=== PATIENT | female | born 1955 | race Caucasian/White ===

== ENCOUNTER → 2016-04-06 | Outpatient (CLI) | payer BC ==
[~2016-04-06] MED LIST: REGADENOSON 0.4 MG/5 ML SYRINGE IV ONE
--- NOTE | 2016-04-06 11:34 | EST ---
DATE OF SERVICE: 04/06/2016 AGE: 60Y SEX: F HT: 65" WT: 160 lbs. Lexiscan Cardiolite Stress Test *Heart Rate Blood Pressure *Rest: 75 Rest: 143/106 * *Max. Achieved: 119 Maximum BP: 182/93 85% PMHR: 159 100% PMHR: 135 *METS: - INDICATIONS: - MEDICATIONS: Calcium, Osteo-Biflex, multivitamin, Motrin. Mrs. Patino is a 60-year-old female who was sent for cardiac evaluation because of palpitation and vague chest discomfort with exertion. Baseline EKG showed a sinus rhythm with normal LA interval and QRS duration. Blood pressure at rest is 143/106 with pulse rate of 75. A standard dose of Lexiscan was infused. EKGs taken during and after the infusion did not reveal any significant changes from the baseline. Occasional PVCs were noted. FINAL IMPRESSION: 1. Negative Lexiscan stress test. 2. Occasional premature ventricular contractions. 3. Patient did not experience any chest pain. 4. Report on the nuclear images to be given by the radiologist.
--- NOTE | 2016-04-06 13:38 | NM ---
EXAMINATION TYPE: NM stress Lexiscan cardiolite DATE OF EXAM: 04/06/2016 11:38 AM COMPARISON: NONE HISTORY: Palpitations TECHNIQUE: After the intravenous administration of 10.6 mCi Tc 99m Sestamibi - Cardiolite resting SP ECT images acquired 45 minutes post injection. The patient received 0.4mg Lexiscan, 27.4 mCi Tc 99m Sestamibi - Stress images obtained [address] injection FINDINGS: Uptake of radiopharmaceutical by the left ventricle is suboptimal. There are no fixed filling defects . There is no convincing inducible ischemic change. Ejection fraction is normal 70%. IMPRESSION: I do not see convincing evidence of inducible ischemic change at this time.
== END | disposition home or self-care (01) ==
LOC: RADNMMAIN 08:58
PROVIDERS: ATTEND Internal Medicine
DX: I49.3 Ventricular premature depolarization (principal)
CPT/HCPCS: 93017; 78452; A9500; J2785

== ENCOUNTER 2016-04-28 08:08 | Day surgery (SDC) | payer BC ==
[2016-04-23 15:00] VITALS: BMI 26.6
[~2016-04-28 08:08] MED LIST changes: +LACTATED RINGERS 1,000 ML IV SCH; +LIDOCAINE 1% 20 ML VIAL (10MG/ML) FOR IV START INTRADERMA PRN; -REGADENOSON 0.4 MG/5 ML SYRINGE IV ONE
[2016-04-28 08:41] VITALS: RESP 16; TEMP 97.8
[2016-04-28] MEDS ORDERED: LIDOCAINE 1% INJ 10MG/ML (20 ML MDV) ONE (08:49)
[2016-04-28] MEDS ORDERED: PROPOFOL 10 MG/ML 20 ML VIAL IV ONE (08:49)
--- NOTE | 2016-04-28 09:12 | P.PCN ---
Date of Procedure: 04/28/16 Procedure(s) Performed: BRIEF HISTORY: Patient is a 60-year-old pleasant white female, scheduled for an elective colonoscopy as a part of evaluation of prior history of colon polyps. Last colonoscopy was in 2010. PROCEDURE PERFORMED: Colonoscopy with biopsy. PREOPERATIVE DIAGNOSIS: History of colon polyps. IV sedation per Anesthesia. PROCEDURE: After informed consent was obtained, the patient, was brought into the endoscopy unit. IV conscious sedation was administered by Anesthesia under continuous monitoring. Initially the Olympus CF-160 flexible video colonoscope was then inserted in the rectum, gradually advanced into the cecum without any difficulty. Careful examination was performed as the scope was gradually being withdrawn. Ileocecal valve and the appendiceal orifice were visualized and appeared normal. Prep was excellent. Mucosa of the cecum, ascending colon, transverse colon, descending colon, sigmoid colon, and rectum appeared normal. In the distal rectum there was a 5 limited polyp that was removed by biopsy. Retroflexion was performed in the rectum and no lesions were seen. The patient tolerated the procedure well. IMPRESSION: 5 mm mid rectal polyp status post removal by biopsy. Scattered sigmoid diverticulosis. RECOMMENDATIONS: Findings of this examination were discussed with the patient as well as her family. She was advised to follow with the biopsy results. If the biopsy shows a tubular adenoma she can have a repeat colonoscopy in 5 years..
[2016-04-28 09:31] VITALS: BP 130/83; PULSE 72
== END 2016-04-28 10:00 | disposition home or self-care (01) ==
LOC: ORWHC2ENDO 08:08
PROVIDERS: ATTEND Internal Medicine Gastroenterology
DX: Z12.11 Encounter for screening for malignant neoplasm of colon (principal); D12.8 Benign neoplasm of rectum; K57.30 Diverticulosis of large intestine without perforation or abscess without bleeding; E07.9 Disorder of thyroid, unspecified; Z86.010 Personal history of colon polyps; Z88.0 Allergy status to penicillin; Z79.1 Long term (current) use of non-steroidal anti-inflammatories (NSAID); Z79.899 Other long term (current) drug therapy
CPT/HCPCS: 88305; 45380; J2001; J2704; 99153

== ENCOUNTER → 2016-09-07 | Outpatient (CLI) | payer BC ==
--- NOTE | 2016-09-07 11:11 | BD ---
EXAMINATION TYPE: MG DEXA axial skeleton. DATE OF EXAM: 09/07/2016 COMPARISON: NONE CLINICAL HISTORY: 61-year-old female known osteopenia Height: 63 Weight: 181.3 FRAX RISK QUESTIONS: Alcohol (3 or more units per day): no Family History (Parent hip fracture): no Glucocorticoids (More than 3mos): no (Ex: prednisone, prednisolone, methylprednisolone, dexamethasone, and hydrocortisone). History of Fracture in Adulthood: yes Secondary Osteoporosis: 1. Type 1 Diabetes: no 2. Hyperthyroidism: no 3. Menopause before 45: yes 4. Malnutrition: no 5. Chronic liver disease: no Rheumatoid Arthritis: no Current Tobacco Use: no RISK FACTORS HISTORY OF: Hip Fracture (Right/Left): no Spine Fracture: no History of Wrist Fracture: no Surgery to Spine/Hip(right/left)/Wrist (right/left): no Family History of Osteoporosis: no Active: yes Diet low in dairy products/other sources of calcium: no Postmenopausal woman: age 35 Lost more than 2 inches in height since high school: yes Frequent falls: no Poor Health: no Hyperparathyroidism: no Adrenal Insufficiency: no MEDICATIONS: Thyroid Medications: synthroid How Lon years EXAM MEASUREMENTS: Bone mineral densitometry was performed using the Second & Fourth System. Bone mineral density as measured about the Lumbar spine is: ----- L1-L4(G/cm2): 1.029 T Score Values are as follows: ----- L2: -1.8 ----- L3: -1.6 ----- L4: -0.7 ----- L1-L4: -1.3 Bone mineral density has: decreased -1.0 % since study of: 05.17.2013 Bone mineral density about the R hip (g/cm2): 0.752 Bone mineral density about the L hip (g/cm2): 0.752 T Score values are as follows: -----R Neck: -2.1 -----L Neck: -2.1 -----R Total: -1.5 -----L Total: -1.0 Bone mineral density has: decreased -0.4 % since study of: 05.17.2013 IMPRESSION: Osteopenia as indicated by T score values in the lumbar spine and both hips. There is slightly increased risk of fracture and the patient may be considered for treatment. Re-Screen 2-5 years. NOTE: T-SCORE=SD OF THE YOUNG ADULT MEAN.
--- NOTE | 2016-09-07 11:22 | MM ---
Reason for exam: screening (asymptomatic). Last mammogram was performed 1 year and 1 month ago. History: Patient is postmenopausal and is nulliparous. Family history of breast cancer in paternal aunt at age 60 and breast cancer in maternal aunt at age 65. Benign cyst aspiration of the left breast, January 24, 2003. Benign excisional biopsy of the right breast. Took estrogen for 13 years beginning at age 35. Physical Findings: A clinical breast exam by your physician is recommended on an annual basis and results should be correlated with mammographic findings. MG Screening Mammo w CAD Bilateral CC and MLO view(s) were taken. Prior study comparison: August 06, 2015, bilateral MG 3d diag mammo w/cad VIKAS. January 28, 2015, left breast MG 3d diag mammo w/cad LT. The breast tissue is heterogeneously dense. This may lower the sensitivity of mammography. No significant changes when compared with prior studies. ASSESSMENT: Benign, BI-RAD 2 RECOMMENDATION: Routine screening mammogram of both breasts in 1 year.
== END | disposition home or self-care (01) ==
LOC: RADMAMWWP 08:10
PROVIDERS: ATTEND Obstetrics & Gynecology
DX: Z12.31 Encounter for screening mammogram for malignant neoplasm of breast (principal); M85.80 Other specified disorders of bone density and structure, unspecified site; Z80.3 Family history of malignant neoplasm of breast
CPT/HCPCS: 77080; G0202

== ENCOUNTER 2017-04-21 14:59 | Observation (INO) | payer BC ==
[2017-04-21] MEDS ORDERED: ASPIRIN 81 MG PO STA (15:15)
[2017-04-21] MEDS ORDERED: NITROGLYCERIN OINT 1 INCH/GM PACKET TOPICAL STA (15:15)
--- NOTE | 2017-04-21 15:17 | ED ---
General Adult HPI - General Chief complaint: Chest Pain Stated complaint: Chest Pain and Left shoulder Time Seen by Provider: 04/21/17 15:00 Source: patient, RN notes reviewed Mode of arrival: wheelchair Limitations: no limitations - History of Present Illness Initial comments: This is a 61-year-old female comes into the emergency department stating she is just gotten over the flu and she went back to work for the first day today and she was experiencing some chest pain since this morning. Patient states last couple of days she was experiencing some left upper back pain. Patient states today with the chest pain she was also noticing she was somewhat short of breath and lightheaded. Patient denies any diaphoresis. Patient denies any radiation of the chest pain. Patient denies any nausea. Patient states she is no longer coughing and no longer having fever chills. Patient denies any abdominal pain patient denies nausea vomiting diarrhea. Patient denies headache patient denies numbness weakness. Patient denies any dizziness lightheadedness or near syncopal episode. - Related Data Home Medications Medication Instructions Recorded Confirmed Calcium Citrate/Vitamin D3 1 tab PO BID 08/30/13 04/21/17 [Calcium Citrate - Vit D3 Tab] Multivit with Calcium,Iron,Min 1 tab PO DAILY 08/30/13 04/21/17 [Women's Daily Multivitamin] Ibuprofen [Motrin] 200 mg PO Q6HR PRN 12/10/15 04/21/17 Glucosamine/Chondr Andrews A Sod [Osteo 1 tab PO BID 04/23/16 04/21/17 Bi-Flex Caplet] Aspirin 325 mg PO ONCE PRN 04/21/17 04/21/17 Levothyroxine Sodium [Synthroid] 75 mcg PO DAILY 04/21/17 04/21/17 Allergies Allergy/AdvReac Type Severity Reaction Status Date / Time Penicillins Allergy Severe Rash/Hives Verified 04/21/17 15:17 Review of Systems ROS Statement: Those systems with pertinent positive or pertinent negative responses have been documented in the HPI. ROS Other: All systems not noted in ROS Statement are negative. Past Medical History Past Medical History: GERD/Reflux, Thyroid Disorder, Vascular Disorder Additional Past Medical History / Comment(s): hx migraines, varicose veins, venous ulcers, History of Any Multi-Drug Resistant Organisms: None Reported Past Surgical History: Appendectomy, Hysterectomy, Orthopedic Surgery Additional Past Surgical History / Comment(s): ORIF RIGHT FOOT WITH PLATE AND SCREWS, Past Anesthesia/Blood Transfusion Reactions: Postoperative Nausea & Vomiting ( PONV) Past Psychological History: No Psychological Hx Reported Smoking Status: Never smoker Past Alcohol Use History: None Reported Past Drug Use History: None Reported - Past Family History Sister(s) Family Medical History: Cancer Father Family Medical History: Musculoskeletal Disorder, Neurologic Disorder Additional Family Medical History / Comment(s): paternal and maternal aunts- breast cancer Mother Family Medical History: COPD, Dementia, Rheumatoid Arthritis (RA) General Exam - General Exam Comments Initial Comments: GENERAL: Patient is well-developed and well-nourished. Patient is nontoxic and well- hydrated and is in mild distress. ENT: Neck is soft and supple. No significant lymphadenopathy is noted. Oropharynx is clear. Moist mucous membranes. EYES: The sclera were anicteric and conjunctiva were pink and moist. Extraocular movements were intact and pupils were equal round and reactive to light. Eyelids were unremarkable. PULMONARY: Unlabored respirations. Good breath sounds bilaterally. No audible rales rhonchi or wheezing was noted. CARDIOVASCULAR: There is a regular rate and rhythm without any murmurs gallops or rubs. ABDOMEN: Soft and nontender with normal bowel sounds. No palpable organomegaly was noted. There is no palpable pulsatile mass. SKIN: Skin is clear with no lesions or rashes and otherwise unremarkable. NEUROLOGIC: Patient is alert and oriented x3. Cranial nerves II through XII are grossly intact. Motor and sensory are also intact. Normal speech, volume and content. Symmetrical smile. MUSCULOSKELETAL: Normal extremities with adequate strength and full range of motion. No lower extremity swelling or edema. No calf tenderness. LYMPHATICS: No significant lymphadenopathy is noted PSYCHIATRIC: Normal psychiatric evaluation. Normal interpersonal interactions appears functionally intact in deals appropriately with others. No signs of depression. No signs of anxiety. Limitations: no limitations Course Vital Signs 04/21/17 04/21/17 04/21/17 15:02 15:32 16:23 Temperature 98.4 F Pulse Rate 90 68 89 Respiratory 20 18 18 Rate Blood Pressure 180/98 170/89 117/72 O2 Sat by Pulse 99 96 96 Oximetry Medical Decision Making - Medical Decision Making EKG shows normal sinus rhythm at 95 bpm KS interval is 174 QRS is 116 QT interval 394 QTC is 495. Patient's EKG shows no ST segment elevation or depression or T wave abnormalities are noted. Chest x-ray showed no acute abnormality. Patient took aspirin and Nitropaste patient's chest pain completely resolved. I started the patient on heparin because of the unstable angina. I spoke with Dr. Marroquin he agreed to admit the patient admitted the patient I wrote admitting orders. I consult cardiology. - Lab Data Result diagrams: 04/21/17 15:25 04/21/17 15:25 Lab Results 04/21/17 04/21/17 04/21/17 Range/Units 15:25 15:25 15:25 WBC 5.5 (3.8-10.6) k/uL RBC 4.68 (3.80-5.40) m/uL Hgb 14.0 (11.4-16.0) gm/dL Hct 41.0 (34.0-46.0) % MCV 87.6 (80.0-100.0) fL MCH 29.9 (25.0-35.0) pg MCHC 34.1 (31.0-37.0) g/dL RDW 13.0 (11.5-15.5) % Plt Count 268 (150-450) k/uL Neutrophils % 58 % Lymphocytes % 31 % Monocytes % 5 % Eosinophils % 2 % Basophils % 0 % Neutrophils # 3.2 (1.3-7.7) k/uL Lymphocytes # 1.7 (1.0-4.8) k/uL Monocytes # 0.3 (0-1.0) k/uL Eosinophils # 0.1 (0-0.7) k/uL Basophils # 0.0 (0-0.2) k/uL PT (9.0-12.0) sec INR (<1.2) APTT (22.0-30.0) sec Sodium 142 (137-145) mmol/L Potassium 3.5 (3.5-5.1) mmol/L Chloride 106 (98-107) mmol/L Carbon Dioxide 24 (22-30) mmol/L Anion Gap 12 mmol/L BUN 13 (7-17) mg/dL Creatinine 0.70 (0.52-1.04) mg/dL Est GFR (MDRD) Af Amer >60 (>60 ml/min/1.73 sqM) Est GFR (MDRD) Non-Af >60 (>60 ml/min/1.73 sqM) Glucose 108 H (74-99) mg/dL Calcium 9.8 (8.4-10.2) mg/dL Magnesium 1.9 (1.6-2.3) mg/dL Total Bilirubin 0.3 (0.2-1.3) mg/dL AST 24 (14-36) U/L ALT 31 (9-52) U/L Alkaline Phosphatase 78 (38-126) U/L Total Creatine Kinase 82 (30-135) U/L CK-MB (CK-2) 1.5 (0.0-2.4) ng/mL CK-MB (CK-2) Rel Index 1.8 Troponin I <0.012 (0.000-0.034) ng/mL Total Protein 6.7 (6.3-8.2) g/dL Albumin 4.1 (3.5-5.0) g/dL 04/21/17 Range/Units 15:25 WBC (3.8-10.6) k/uL RBC (3.80-5.40) m/uL Hgb (11.4-16.0) gm/dL Hct (34.0-46.0) % MCV (80.0-100.0) fL MCH (25.0-35.0) pg MCHC (31.0-37.0) g/dL RDW (11.5-15.5) % Plt Count (150-450) k/uL Neutrophils % % Lymphocytes % % Monocytes % % Eosinophils % % Basophils % % Neutrophils # (1.3-7.7) k/uL Lymphocytes # (1.0-4.8) k/uL Monocytes # (0-1.0) k/uL Eosinophils # (0-0.7) k/uL Basophils # (0-0.2) k/uL PT 10.1 (9.0-12.0) sec INR 1.0 (<1.2) APTT 22.7 (22.0-30.0) sec Sodium (137-145) mmol/L Potassium (3.5-5.1) mmol/L Chloride (98-107) mmol/L Carbon Dioxide (22-30) mmol/L Anion Gap mmol/L BUN (7-17) mg/dL Creatinine (0.52-1.04) mg/dL Est GFR (MDRD) Af Amer (>60 ml/min/1.73 sqM) Est GFR (MDRD) Non-Af (>60 ml/min/1.73 sqM) Glucose (74-99) mg/dL Calcium (8.4-10.2) mg/dL Magnesium (1.6-2.3) mg/dL Total Bilirubin (0.2-1.3) mg/dL AST (14-36) U/L ALT (9-52) U/L Alkaline Phosphatase (38-126) U/L Total Creatine Kinase (30-135) U/L CK-MB (CK-2) (0.0-2.4) ng/mL CK-MB (CK-2) Rel Index Troponin I (0.000-0.034) ng/mL Total Protein (6.3-8.2) g/dL Albumin (3.5-5.0) g/dL Critical Care Time Critical Care Time: Yes Total Critical Care Time: 35 Disposition Clinical Impression: Unstable angina pectoris Disposition: ADMITTED IP TO THIS HOSP Referrals: Juan Patrick MD [Primary Care Provider] - 1-2 days
[2017-04-21 15:46] LABS: Basophils % (A) 0 %; Eosinophils # (A) 0.1 k/uL (0-0.7); Eosinophils % (A) 2 %; Lymphocytes # (A) 1.7 k/uL (1.0-4.8); Lymphocytes % (A) 31 %; MCH 29.9 pg (25.0-35.0); MCHC 34.1 g/dL (31.0-37.0); MCV 87.6 fL (80.0-100.0); Mean Platelet Volume 7.6; Monocytes # (A) 0.3 k/uL (0-1.0); Monocytes % (A) 5 %; Neutrophils # (A) 3.2 k/uL (1.3-7.7); Neutrophils % (A) 58 %; Platelet Count 268 k/uL (150-450); RBC 4.68 m/uL (3.80-5.40); WBC 5.5 k/uL (3.8-10.6)
[2017-04-21 15:53] LABS: ALT 31 U/L (9-52); AST 24 U/L (14-36); Albumin 4.1 g/dL (3.5-5.0); Alkaline Phosphatase 78 U/L (38-126); Anion Gap 12 mmol/L; Blood Urea Nitrogen 13 mg/dL (7-17); Calcium 9.8 mg/dL (8.4-10.2); Carbon Dioxide 24 mmol/L (22-30); Chloride 106 mmol/L (98-107); Glucose 108 mg/dL (74-99); Magnesium 1.9 mg/dL (1.6-2.3); Potassium 3.5 mmol/L (3.5-5.1); Sodium 142 mmol/L (137-145); Total Bilirubin 0.3 mg/dL (0.2-1.3); Total Protein 6.7 g/dL (6.3-8.2)
[2017-04-21 15:54] LABS: Partial Thromboplastin Time 22.7 sec (22.0-30.0); Prothrombin Time 10.1 sec (9.0-12.0)
--- NOTE | 2017-04-21 15:59 | XR ---
EXAMINATION TYPE: XR chest 2V DATE OF EXAM: 04/21/2017 COMPARISON: NONE TECHNIQUE: PA and lateral views submitted. HISTORY: Left chest pain FINDINGS: The lungs are clear and there is no pneumothorax, pleural effusion, or focal pneumonia. Opercular d egenerative change of the spine. IMPRESSION: 1. No acute process.
[2017-04-21 16:03] LABS: Creatine Kinase 82 U/L (30-135)
[2017-04-21 16:15] LABS: Creatine Kinase MB 1.5 ng/mL (0.0-2.4); Troponin I <0.012 ng/mL (0.000-0.034)
[2017-04-21] MEDS ORDERED: HEPARIN SODIUM,PORCINE 5,000 UNIT/ML 1 ML VIAL IV ONE (16:56)
[2017-04-21] MEDS ORDERED: HEPARIN SOD,PORK IN 0.45% NACL 25,000 UNIT in 0.45% NACL 1 500ML.BAG IV SCH (17:00)
[2017-04-21] MEDS ORDERED: ASPIRIN 325 MG TAB PO PRN (23:10)
[2017-04-21] MEDS ORDERED: ZOLPIDEM 5 MG TAB PO PRN (23:11)
[2017-04-21] MEDS ORDERED: ACETAMINOPHEN TAB 325 MG TAB PO PRN (23:12)
[2017-04-21] MEDS ORDERED: CALCIUM CARBONATE 500 MG CHEWABLE PO PRN (23:13)
[2017-04-21] MEDS ORDERED: PANTOPRAZOLE 40 MG TABLET PO STA (23:13)
[2017-04-21 23:25] LABS: Creatine Kinase 61 U/L (30-135)
[2017-04-21 23:38] LABS: Troponin I <0.012 ng/mL (0.000-0.034)
[2017-04-22 05:33] LABS: Creatine Kinase 54 U/L (30-135)
[2017-04-22 05:44] LABS: Creatine Kinase MB 0.8 ng/mL (0.0-2.4); Troponin I <0.012 ng/mL (0.000-0.034)
[2017-04-22] MEDS ORDERED: LEVOTHYROXINE 75 MCG TAB PO SCH (06:30)
[2017-04-22] MEDS ORDERED: PANTOPRAZOLE 40 MG TABLET PO SCH (07:30)
[2017-04-22 08:01] VITALS: RESP 16
[2017-04-22] MEDS ORDERED: MULTIVITAMINS, THERA 1 EACH TAB PO SCH (09:00)
[2017-04-22] MEDS ORDERED: CALCIUM CARB-VIT D 500MG-200UN 1 EACH TAB PO SCH (09:00)
--- NOTE | 2017-04-22 09:31 | CONS ---
CONSULTATION Mrs. Patino is a 61-year-old female who presented with symptoms of chest discomfort. She recently had a viral infection and yesterday went back to work then started to complain of some chest discomfort on and off, not related to physical activity. She had mild dyspnea and did not feel well, came into the emergency room and subsequently admitted. At the time my evaluation, she is pain free. The patient is usually active physically and has no significant exertional chest discomfort or dyspnea. She has underwent a myocardial perfusion imaging on the March that revealed no evidence of inducible ischemia and her left ventricular systolic function was normal. The patient has no history of PND, orthopnea, or peripheral edema. She has history of varicosities. No dizziness. She has rare palpitation. No syncope. Her current risk factors are negative for smoking. She is nondiabetic. No hyperlipidemia. Her medications include aspirin, vitamin D, glucosamine, ibuprofen, levothyroxine. REVIEW OF SYSTEMS: RESPIRATORY SYSTEM: She has no history of documented asthma, emphysema, bronchitis. She had a recent upper respiratory infection, was told that she has influenza. GI SYSTEM: No recent GI bleeding. No peptic ulcer disease. SYSTEM: No dysuria or hematuria. NERVOUS SYSTEM: No history of stroke or seizure. PHYSICAL EXAMINATION: A 61-year-old female, alert, oriented, in no apparent distress. Blood pressure 131/70 with the heart rate in the 80s. HEAD: Normocephalic. EYES: Sclerae anicteric. NECK: Good upstroke. No bruit. No jugular venous distention. LUNGS: Clear to auscultation. HEART: Regular rate and rhythm. S1, S2. No S3. No rub. ABDOMEN: Soft, nontender. Positive bowel sounds. No organomegaly. EXTREMITIES: No edema. Intact distal pulses. LAB DATA: Lab data revealed troponin less than 0.012 for 3 samples. BUN and creatinine 13 and 0.7. Potassium 3.5. Hemoglobin 14. EKG revealed a sinus mechanism with a RSR prime and no acute changes. Chest x-ray shows no infiltrate. IMPRESSION: 1. Chest discomfort, atypical for ischemic heart disease with no evidence of acute coronary syndrome. The patient had a myocardial perfusion imaging done a year ago that was unremarkable. 2. Recent upper respiratory infection. RECOMMENDATION: From the cardiac standpoint, I will stop the IV nitroglycerin, increase her level of activity. I will obtain echocardiogram with Doppler. If she has no further symptoms with ambulation, she should be able to be discharged home and followed as an outpatient. Thank you for this consult. Will follow with you. VANNESSA / ARIANE: [id number] /
[2017-04-22 12:04] VITALS: BP 144/94; PULSE 87; TEMP 98.9
--- NOTE | 2017-04-22 12:15 | P.HPIM ---
History of Present Illness H&P Date: 04/22/17 Chief Complaint: Chest pain This is a 61-year-old female with a known past medical history of hypothyroidism , migraines acid reflux. Patient reports she recently had flu. However describe symptoms of vomiting and diarrhea for 4 days. That is now resolved. Yesterday was her first day to return to work. And while she was at work she started having left-sided chest pain that went into the left shoulder and behind the shoulder and the back. Coworkers were concerned for her. Therefore patient did come into the emergency room for further evaluation and treatment. Chest x-rays negative. EKG showing normal sinus rhythm. Troponins were negative 3 sets. Patient recently had a stress test in March 2016 which was negative. Patient has knitted to the observation floor. Cardiology has been consulted. In they've ordered a echo. Depending on those results patient may be a be discharged later this afternoon. She is no longer having any chest pain. She denies any cough fever or chills or sweats. Denies any further episodes of nausea or vomiting. Denies any burning with urination. Review of Systems Please refer to HPI otherwise unremarkable Past Medical History Past Medical History: GERD/Reflux, Thyroid Disorder, Vascular Disorder Additional Past Medical History / Comment(s): hx migraines, varicose veins, venous ulcers, History of Any Multi-Drug Resistant Organisms: None Reported Past Surgical History: Appendectomy, Hysterectomy, Orthopedic Surgery Additional Past Surgical History / Comment(s): ORIF RIGHT FOOT WITH PLATE AND SCREWS, Past Anesthesia/Blood Transfusion Reactions: Postoperative Nausea & Vomiting ( PONV) Smoking Status: Never smoker - Past Family History Sister(s) Family Medical History: Cancer Additional Family Medical History / Comment(s): mom hx: emphysema, hypertension , dementia. dad hx:ms Father Family Medical History: Musculoskeletal Disorder, Neurologic Disorder Additional Family Medical History / Comment(s): paternal and maternal aunts- breast cancer Mother Family Medical History: COPD, Dementia, Rheumatoid Arthritis (RA) Medications and Allergies Home Medications Medication Instructions Recorded Confirmed Type Calcium Citrate/Vitamin D3 1 tab PO BID 08/30/13 04/21/17 History [Calcium Citrate - Vit D3 Tab] Multivit with Calcium,Iron,Min 1 tab PO DAILY 08/30/13 04/21/17 History [Women's Daily Multivitamin] Ibuprofen [Motrin] 200 mg PO Q6HR PRN 12/10/15 04/21/17 History Glucosamine/Chondr Andrews A Sod [Osteo 1 tab PO BID 04/23/16 04/21/17 History Bi-Flex Caplet] Aspirin 325 mg PO ONCE PRN 04/21/17 04/21/17 History Levothyroxine Sodium [Synthroid] 75 mcg PO DAILY 04/21/17 04/21/17 History Allergies Allergy/AdvReac Type Severity Reaction Status Date / Time Penicillins Allergy Severe Rash/Hives Verified 04/21/17 15:17 Physical Exam Vitals: Vital Signs Temp Pulse Pulse Resp BP BP Pulse Ox 04/22/17 12:00 98.9 F 87 16 144/94 98 04/22/17 07:59 98.6 F 82 16 131/78 96 04/22/17 04:00 60 18 04/22/17 03:28 98 F 86 18 143/77 95 04/22/17 00:00 68 18 04/21/17 22:21 81 18 100/59 100 04/21/17 20:00 78 18 04/21/17 19:18 99 F 86 18 104/67 95 04/21/17 17:55 97.9 F 90 18 140/84 98 04/21/17 17:32 97.4 F L 82 18 132/80 99 04/21/17 16:23 89 18 117/72 96 04/21/17 15:32 68 18 170/89 96 04/21/17 15:02 98.4 F 90 20 180/98 99 Intake and Output 04/21/17 04/22/17 04/22/17 22:59 06:59 14:59 Intake Total 1116 511.917 Balance 1116 511.917 Intake: IV 80 330 0.9 NS @ KVO 80 160 Heparin Sod,Pork in 0.45% 170 NaCl 25,000 unit In 0.45 % NaCl 1 500ml.bag @ 12 UNITS/KG/HR 18.5 mls/hr IV .Q24H TEX Rx#: [id number] Intake, IV Titration 76 181.917 Amount Heparin Sod,Pork in 0.45% 76 181.917 NaCl 25,000 unit In 0.45 % NaCl 1 500ml.bag @ 12 UNITS/KG/HR 18.5 mls/hr IV .Q24H TEX Rx#: [id number] Oral 960 Other: Voiding Method Toilet Toilet Toilet # Voids 2 2 Weight 79.8 kg Head normocephalic Neck supple Lungs clear to auscultation bilaterally no wheezing or crackles Heart regular rate and rhythm S1-S2, no rub or gallop Abdomen is soft nontender nondistended positive bowel sounds no hepatosplenomegaly Extremities no edema Neuro alert and orientated to 3 Results CBC & Chem 7: 04/21/17 15:25 04/21/17 15:25 Labs: Abnormal Lab Results - Last 24 Hours (Table) 04/21/17 04/21/17 Range/Units 15:25 22:42 APTT 39.5 H (22.0-30.0) sec Glucose 108 H (74-99) mg/dL Thrombosis Risk Factor Assmnt - Choose All That Apply Any of the Below Risk Factors Present?: Yes Each Factor Represents 1 point: Obesity (BMI >25) Other Risk Factors: Yes Each Risk Factor Represents 2 Points: Age 61-74 years Other congenital or acquired thrombophilia - If yes, enter type in comment: No Thrombosis Risk Factor Assessment Total Risk Factor Score: 3 Thrombosis Risk Factor Assessment Level: Moderate Risk Assessment and Plan Assessment: 1. Chest pain: HI ruled out. Troponins negative 3 sets. EKG normal sinus rhythm. Chest x-rays negative. Last stress test a year ago which was negative. Patient seen by cardiology they've ordered an echocardiogram. Awaiting those results with a possible discharge this afternoon 2. Recent gastroenteritis with vomiting and diarrhea. Resolved 3. Hypothyroidism 4. GERD Anticipating discharge later this afternoon. Time with Patient: Greater than 30 (Greater than 50% of the total time spent in counseling and coordination of care.I performed an examination of the patient and discussed their management with the physician Valve Steamer. I have reviewed the Physician Valve Steamer's notes and agree with the documented findings and plan of care)
--- NOTE | 2017-04-22 13:12 | ECHOF ---
Referral Reason: MEASUREMENTS -------- HEIGHT: 165.1 cm WEIGHT: 79.4 kg BP: RVIDd: 3.5 cm (< 3.3) IVSd: 1.2 cm (0.6 - 1.1) LVIDd: 4.1 cm (3.9 - 5.3) LVPWd: 0.8 cm (0.6 - 1.1) IVSs: 1.4 cm LVIDs: 3.0 cm LVPWs: 1.4 cm LA Diam: 3.1 cm (2.7 - 3.8) LAESV Index (A-L): 22.53 ml/m Ao Diam: 2.7 cm (2.0 - 3.7) AV Cusp: 2.0 cm (1.5 - 2.6) LA Diam: 3.9 cm (2.7 - 3.8) MV EXCURSION: 17.701 mm (> 18.000) MV EF SLOPE: 101 mm/s (70 - 150) EPSS: 0.6 cm MV E Conrad: 0.65 m/s MV DecT: 198 ms MV A Conrad: 0.72 m/s MV E/A Ratio: 0.91 AR PHT: 340 ms RAP: 5.00 mmHg RVSP: 17.57 mmHg FINDINGS -------- Sinus rhythm. This was a technically good study. The left ventricular size is normal. There is mild concentric left ventricular hypertrophy. Overa ll left ventricular systolic function is normal with, an EF between 55 - 60 %. The right ventricle is normal in size. Normal LA size by volume 22+/-6 ml/m2. The right atrial size is normal. The aortic valve is trileaflet and appears structurally normal. There is mild aortic regurgitation. The mitral valve is normal. Mild mitral regurgitation is present. Mild tricuspid regurgitation present. There is no evidence of pulmonary hypertension. The right v entricular systolic pressure, as measured by Doppler, is 17.57mmHg. Trace/mild (physiologic) pulmonic regurgitation. The aortic root size is normal. There is no pericardial effusion. CONCLUSIONS -------- 1. Sinus rhythm. 2. This was a technically good study. 3. The left ventricular size is normal. 4. There is mild concentric left ventricular hypertrophy. 5. Overall left ventricular systolic function is normal with, an EF between 55 - 60 %. 6. Normal LA size by volume 22+/-6 ml/m2. 7. There is mild aortic regurgitation. 8. Mild mitral regurgitation is present. 9. Mild tricuspid regurgitation present. 10. There is no evidence of pulmonary hypertension. 11. Trace/mild (physiologic) pulmonic regurgitation. 12. The aortic root size is normal. 13. There is no pericardial effusion. YARD TRUCK DRIVER: Latonya Chopra RDCS
--- NOTE | 2017-04-22 13:56 | P.DS ---
Providers Date of admission: 04/21/17 17:18 Expected date of discharge: 04/22/17 Attending physician: Ashkan Marroquin Consults: 04/21/17 17:31 Consult Physician Stat Consulting Provider: Claire No Consult Reason/Comments: Unstable Angina Do you want consulting provider notified?: Yes Primary care physician: Juan Camarena [facility] Course: Discharge diagnosis 1. Chest pain: OR ruled out. Troponins negative 3 sets. EKG normal sinus rhythm. Chest x-rays negative. Last stress test a year ago which was negative. Patient seen by cardiology they've ordered an echocardiogram. Awaiting those results with a possible discharge this afternoon 2. Recent gastroenteritis with vomiting and diarrhea. Resolved 3. Hypothyroidism 4. GERD Hospital course This is a 61-year-old female with a known past medical history of hypothyroidism , migraines acid reflux. Patient reports she recently had flu. However describe symptoms of vomiting and diarrhea for 4 days. That is now resolved. Yesterday was her first day to return to work. And while she was at work she started having left-sided chest pain that went into the left shoulder and behind the shoulder and the back. Coworkers were concerned for her. Therefore patient did come into the emergency room for further evaluation and treatment. Chest x-rays negative. EKG showing normal sinus rhythm. Troponins were negative 3 sets. Patient recently had a stress test in March 2016 which was negative. Patient has knitted to the observation floor. Cardiology has been consulted. In they've ordered a echo. Depending on those results patient may be a be discharged later this afternoon. She is no longer having any chest pain. She denies any cough fever or chills or sweats. Denies any further episodes of nausea or vomiting. Denies any burning with urination. Patient was seen evaluated by cardiology. OR ruled out. Echocardiogram shows an EF of 55-60%. Mild mitral regurgitation, mild tricuspid regurgitation and trace pulmonary regurgitation. Cardiology is cleared patient for discharge. She'll follow-up with cardiology in the outpatient setting. Her chest pain is resolved. Tolerating diet. Patient did have some mildly elevated blood pressures on admission. However blood pressures have now normalized. We'll continue to monitor BP in the outpatient setting. Patient medically stable for discharge I performed an examination of the patient and discussed their management with the physician Melting Operator. I have reviewed the Physician Melting Operator's notes and agree with the documented findings and plan of care Patient Condition at Discharge: Stable Plan - Discharge Summary Discharge Rx Participant: No New Discharge Prescriptions: Continue Multivit with Calcium,Iron,Min [Women's Daily Multivitamin] 1 tab PO DAILY Calcium Citrate/Vitamin D3 [Calcium Citrate - Vit D3 Tab] 1 tab PO BID Ibuprofen [Motrin] 200 mg PO Q6HR PRN PRN Reason: Pain Glucosamine/Chondr Andrews A Sod [Osteo Bi-Flex Caplet] 1 tab PO BID Levothyroxine Sodium [Synthroid] 75 mcg PO DAILY Aspirin 325 mg PO ONCE PRN PRN Reason: Chest Pain Discharge Medication List Calcium Citrate/Vitamin D3 [Calcium Citrate - Vit D3 Tab] 1 tab PO BID 08/30/13 [History] Multivit with Calcium,Iron,Min [Women's Daily Multivitamin] 1 tab PO DAILY 08/30 [History] Ibuprofen [Motrin] 200 mg PO Q6HR PRN 12/10/15 [History] Glucosamine/Chondr Andrews A Sod [Osteo Bi-Flex Caplet] 1 tab PO BID 04/23/16 [ History] Aspirin 325 mg PO ONCE PRN 04/21/17 [History] Levothyroxine Sodium [Synthroid] 75 mcg PO DAILY 04/21/17 [History] Follow up Appointment(s)/Referral(s): Alison Hobbs MD [STAFF PHYSICIAN] - 3 Weeks (Office will call patient with appointment date and time) Juan Patrick MD [Primary Care Provider] - 1 Week Activity/Diet/Wound Care/Special Instructions: Diet: regular Activity: as tolerated Discharge Disposition: HOME SELF-CARE
[2017-04-22 15:40] VITALS: BMI 29.2
== END 2017-04-22 15:30 | disposition home or self-care (01) ==
LOC: EC 14:59 → 3OBS 17:18
PROVIDERS: ADMIT Internal Medicine; ATTEND Internal Medicine
DX: R07.89 Other chest pain (principal); M25.512 Pain in left shoulder; M54.6 Pain in thoracic spine; R42 Dizziness and giddiness; R06.00 Dyspnea, unspecified; R06.02 Shortness of breath; K52.9 Noninfective gastroenteritis and colitis, unspecified; E03.9 Hypothyroidism, unspecified; K21.9 Gastro-esophageal reflux disease without esophagitis; G43.909 Migraine, unspecified, not intractable, without status migrainosus; I08.1 Rheumatic disorders of both mitral and tricuspid valves; R03.0 Elevated blood-pressure reading, without diagnosis of hypertension; E66.9 Obesity, unspecified; Z68.29 Body mass index [BMI] 29.0-29.9, adult; I83.90 Asymptomatic varicose veins of unspecified lower extremity; Z88.0 Allergy status to penicillin; Z79.899 Other long term (current) drug therapy; Z82.5 Family history of asthma and other chronic lower respiratory diseases; Z80.3 Family history of malignant neoplasm of breast; Z82.0 Family history of epilepsy and other diseases of the nervous system; Z82.61 Family history of arthritis; Z82.49 Family history of ischemic heart disease and other diseases of the circulatory system
CPT/HCPCS: 99291; 96376 ×2; 96365 ×2; 96366 ×2; 36415; 93005; 93306; 80053; 82550 ×2; 82553 ×2; 83735; 84484 ×2; 85025; 85610; 85730; 71046; G0378 ×2; J1644 ×2

== ENCOUNTER → 2017-11-30 | Outpatient (CLI) | payer BC ==
--- NOTE | 2017-12-01 13:12 | MM ---
Reason for exam: screening (asymptomatic). Last mammogram was performed 1 year and 3 months ago. History: Patient is postmenopausal and is nulliparous. Family history of breast cancer in paternal aunt at age 60 and breast cancer in maternal aunt at age 65. Benign cyst aspiration of the left breast, January 24, 2003. Benign excisional biopsy of the right breast. Took estrogen for 13 years beginning at age 35. Physical Findings: A clinical breast exam by your physician is recommended on an annual basis and results should be correlated with mammographic findings. MG Screening Mammo w CAD Bilateral CC and MLO view(s) were taken. Prior study comparison: September 07, 2016, bilateral MG screening mammo w CAD. August 06, 2015, bilateral MG 3d diag mammo w/cad VIKAS. The breast tissue is heterogeneously dense. This may lower the sensitivity of mammography. No significant changes when compared with prior studies. ASSESSMENT: Benign, BI-RAD 2 RECOMMENDATION: Routine screening mammogram of both breasts in 1 year.
== END | disposition home or self-care (01) ==
LOC: RADMAMWWP 07:16
PROVIDERS: ATTEND Obstetrics & Gynecology
DX: Z12.31 Encounter for screening mammogram for malignant neoplasm of breast (principal)
CPT/HCPCS: 77067

== ENCOUNTER → 2018-12-25 | Outpatient (CLI) | payer BC ==
--- NOTE | 2018-12-25 10:32 | BD ---
EXAMINATION TYPE: Axial Bone Density DATE OF EXAM: 12/25/2018 COMPARISON: 2017 CLINICAL HISTORY: disorder of bone Height: 5'2 Weight: 180 FRAX RISK QUESTIONS: History of Fracture in Adulthood: y Secondary Osteoporosis: 3. Menopause before 45: y RISK FACTORS HISTORY OF: Postmenopausal woman: y MEDICATIONS: Thyroid Medications: Which medication: Synthroid How Lon years Additional Medications: Additional History: EXAM MEASUREMENTS: Bone mineral densitometry was performed using the [employer] System. Bone mineral density as measured about the Lumbar spine is: ----- L1-L4(G/cm2): 1.109 T Score Values are as follows: ----- L2: -1.2 ----- L3: -0.6 ----- L4: -0.4 ----- L1-L4: -0.6 Bone mineral density has: Increased 6.8 %since study of: 09/07/2016 Bone mineral density about the R hip (g/cm2): 0.780 Bone mineral density about the L hip (g/cm2): 0.777 T Score values are as follows: -----R Neck: -1.9 -----L Neck: -1.9 -----R Total: -1.5 -----L Total: -0.7 Bone mineral density has: Increased 1.5%since study of: 09/07/2016 IMPRESSION: Osteopenia (T Score between -2.5 and -1). There is slightly increased risk of fracture and the patient may be considered for treatment. Re-Screen 2-5 years. NOTE: T-SCORE=SD OF THE YOUNG ADULT MEAN.
--- NOTE | 2018-12-25 13:24 | MM ---
Reason for exam: screening (asymptomatic). Last mammogram was performed 1 year and 1 month ago. History: Patient is postmenopausal and is nulliparous. Family history of breast cancer in paternal aunt at age 60 and breast cancer in maternal aunt at age 65. Benign cyst aspiration of the left breast, January 24, 2003. Benign excisional biopsy of the right breast. Took estrogen for 13 years beginning at age 35. Physical Findings: A clinical breast exam by your physician is recommended on an annual basis and results should be correlated with mammographic findings. MG Screening Mammo w CAD Bilateral CC and MLO view(s) were taken. XCCM view(s) were taken of the right breast. Prior study comparison: November 30, 2017, bilateral MG screening mammo w CAD. September 07, 2016, bilateral MG screening mammo w CAD. The breast tissue is heterogeneously dense. This may lower the sensitivity of mammography. Benign appearing calcifications in the right breast. There are two upper outer quadrant masses and three left masses as well as posterior depth central asymmetry. Spot images first recommended to see which masses persist. Ultrasound if persistent. ASSESSMENT: Incomplete: need additional imaging evaluation, BI-RAD 0 RECOMMENDATION: Special view mammogram of the left breast. If lesion persists on supplemental views, image directed ultrasound is recommended. [facility] will attempt to contact patient to return for supplemental views and ultrasound if indicated.
== END ==
LOC: RADMAMWWP 08:26
PROVIDERS: ATTEND Obstetrics & Gynecology
DX: Z12.31 Encounter for screening mammogram for malignant neoplasm of breast (principal); M85.80 Other specified disorders of bone density and structure, unspecified site
CPT/HCPCS: 77067; 77080

== ENCOUNTER → 2019-01-02 | Outpatient (CLI) | payer BC ==
--- NOTE | 2019-01-03 09:30 | MM ---
Reason for exam: additional evaluation requested from abnormal screening. Last mammogram was performed less than 1 month ago. History: Patient is postmenopausal and is nulliparous. Family history of breast cancer in paternal aunt at age 60 and breast cancer in maternal aunt at age 65. Benign cyst aspiration of the left breast, January 24, 2003. Benign excisional biopsy of the right breast. Took estrogen for 13 years beginning at age 35. Physical Findings: Nurse did not find any significant physical abnormalities on exam. MG Work Up Mamm w CAD BILAT Bilateral spot compression CC, spot compression MLO, and LM view(s) were taken. Prior study comparison: December 25, 2018, bilateral MG screening mammo w CAD. November 30, 2017, bilateral MG screening mammo w CAD. The breast tissue is heterogeneously dense. This may lower the sensitivity of mammography. There are multiple bilateral circumscribed masses, most commonly cysts, however ultrasound will be performed on the right and in the left upper outer quadrant in the areas of change from the prior 3D mammogram of 2016. These results were verbally communicated with the patient and result sheet given to the patient on 01/02/19. ASSESSMENT: Incomplete: need additional imaging evaluation, BI-RAD 0 RECOMMENDATION: Ultrasound of both breasts. Left upper outer quadrant, right whole breast.
--- NOTE | 2019-01-03 09:57 | USB ---
Reason for exam: additional evaluation requested from abnormal screening. History: Patient is postmenopausal and is nulliparous. Family history of breast cancer in paternal aunt at age 60 and breast cancer in maternal aunt at age 65. Benign cyst aspiration of the left breast, January 24, 2003. Benign excisional biopsy of the right breast. Took estrogen for 13 years beginning at age 35. US Breast Workup Limited VIKAS Right complete breast ultrasound includes all four quadrants, the retroareolar region and axilla. Finding demonstrates a 0.3 x 0.3 x 0.3cm oval, complicated cystic lesion at 2 o'clock, a 0.2 x 0.2 x 0.2cm oval lesion too small to characterize at 7 o'clock, duct ectasia at 10 o'clock, a 0.8 x 1.0 x 0.6cm oval, cystic lesion at 11 o'clock, multiple calcifications at 9 o'clock posterior nipple and a 2.7 x 1.1 x 1.0cm oval node at the axilla. Left limited breast ultrasound including focal area of concern, retroareolar and axilla demonstrates a 0.8 x 0.9 x 0.5cm cystic cluster at 12 o'clock, a 0.4 x 0.4 x 0.3cm complicated, cystic lesion at 2 o'clock, a 2.2 x 2.1 x 0.9cm axilla node, a 0.6 x 1.1 x 0.5cm cystic lesion possible intracystic component at 4 o'clock for which a 6 month follow up is recommended and a 0.6 x 0.6 x 0.5cm second complex cyst versus cyst cluster at 6 o'clock stable from 2016 and benign. Scanned whole right breast. Scanned left beast 12-9 o'clock. These results were verbally communicated with the patient and result sheet given to the patient on 01/02/19. ASSESSMENT: Probably benign, BI-RAD 3 RECOMMENDATION: Follow-up diagnostic mammogram of the right breast in 6 months. Ultrasound of the left breast in 6 months. (4 o'clock)
== END | disposition home or self-care (01) ==
LOC: RADMAMWWP 14:08
PROVIDERS: ATTEND Obstetrics & Gynecology
DX: R92.8 Other abnormal and inconclusive findings on diagnostic imaging of breast (principal)
CPT/HCPCS: 77066

== ENCOUNTER → 2019-12-25 | Outpatient (CLI) | payer BC ==
--- NOTE | 2019-12-25 14:42 | MM ---
Reason for exam: additional evaluation requested from prior study. Last mammogram was performed 1 year ago. History: Patient is postmenopausal and is nulliparous. Family history of breast cancer in paternal aunt at age 60 and breast cancer in maternal aunt at age 65. Benign cyst aspiration of the left breast, January 24, 2003. Benign excisional biopsy of the right breast. Took estrogen for 13 years beginning at age 35. Physical Findings: Nurse did not find any significant physical abnormalities on exam. MG 3D Diag Mammo W/Cad VIKAS Bilateral CC and MLO view(s) were taken. Prior study comparison: January 02, 2019, bilateral MG work up mamm w CAD BILAT. December 25, 2018, bilateral MG screening mammo w CAD. The breast tissue is heterogeneously dense. This may lower the sensitivity of mammography. There is chronic nodularity bilaterally. These results were verbally communicated with the patient and result sheet given to the patient on 12/25/19. ASSESSMENT: Incomplete: need additional imaging evaluation, BI-RAD 0 RECOMMENDATION: Ultrasound of the left breast.
--- NOTE | 2019-12-25 14:43 | USB ---
Reason for exam: additional evaluation requested from abnormal screening. History: Patient is postmenopausal and is nulliparous. Family history of breast cancer in paternal aunt at age 60 and breast cancer in maternal aunt at age 65. Benign cyst aspiration of the left breast, January 24, 2003. Benign excisional biopsy of the right breast. Took estrogen for 13 years beginning at age 35. US Breast Limited LT Left limited breast ultrasound including focal area of concern, retroareolar and axilla demonstrates a 0.8 x 0.7 x 0.4cm cystic lesion at 12 o'clock and a 0.5 x 0.4 x 0.4cm cystic lesion at 3 o'clock. These results were verbally communicated with the patient and result sheet given to the patient on 12/25/19. ASSESSMENT: Benign, BI-RAD 2 RECOMMENDATION: Routine screening mammogram of both breasts in 1 year.
== END | disposition home or self-care (01) ==
LOC: RADMAMWWP 13:35
PROVIDERS: ATTEND Obstetrics & Gynecology
DX: R92.8 Other abnormal and inconclusive findings on diagnostic imaging of breast (principal); Z87.898 Personal history of other specified conditions
CPT/HCPCS: 77062; 77066

== ENCOUNTER → 2020-10-21 | Outpatient (CLI) | payer BC ==
--- NOTE | 2020-10-21 15:19 | US ---
LOWER EXTREMITY VENOUS INSUFFICIENCY CLINICAL HISTORY: I87.311. SIDE PERFORMED: Bilateral 1) Color flow is present and patency is documented in the following vessels. No DVT or SVT is noted . Common Femoral Vein Deep Femoral Vein Femoral Vein Popliteal Vein Proximal Calf Veins Greater Saph Vein Upper Small Saph Vein 2) There is venous reflux noted at the following venous levels: Right GSV, right SSV, Left GSV IMPRESSION: 1. Venous reflux as discussed above.
--- NOTE | 2020-10-22 12:15 | P.ARTDOP ---
Arterial Doppler LOWER EXTREMITY ARTERIAL DOPPLER: DATE OF SERVICE: 10/21/2020 Reason for study: Right ankle ulcer. Doppler waveforms: Multiphasic bilaterally throughout. Pulse volume recording: []. Pressure gradients: None. Ankle-brachial indices: Greater than 1 bilaterally. Toe brachial indices: [] on the right, [] on the left Impression: Normal study.
== END | disposition home or self-care (01) ==
LOC: RADUSWWP 13:34
PROVIDERS: ATTEND Family Medicine
DX: I87.2 Venous insufficiency (chronic) (peripheral) (principal)
CPT/HCPCS: 93922; 93970

== ENCOUNTER → 2021-05-06 | Outpatient (CLI) | payer MEDICARE ==
--- NOTE | 2021-05-06 17:38 | BD ---
EXAMINATION TYPE: Axial Bone Density DATE OF EXAM: 05/06/2021 COMPARISON: 12/25/2018 CLINICAL HISTORY: Height: 61 IN Weight: 177 FRAX RISK QUESTIONS: Secondary Osteoporosis: 3. Menopause before 45: TOTAL HYST AGE 35 RISK FACTORS HISTORY OF: Active: YES Postmenopausal woman: TOTAL HYST AGE 35 Take estrogen and/or progesterone medications: NOT NOW How long: TOOK FOR 7 YEARS MEDICATIONS: Thyroid Medications: YES Which medication: Levothyroxine How Lon+ YEARS Additional Medications: CALCIUM, VIT D, LEVOTHYROXINE, OSTEO-BIOFLEX, BLOOD PRESSURE MEDS, MULTI VIT EXAM MEASUREMENTS: Bone mineral densitometry was performed using the [employer] System. Bone mineral density as measured about the Lumbar spine is: ----- L1-L4(G/cm2): 1.080 T Score Values are as follows: ----- L2: -1.6 ----- L3: -1.3 ----- L4: -0.2 ----- L1-L4: -0.8 Bone mineral density has: Decreased -2.9% since study of: 12/25/2018 Bone mineral density about the R hip (g/cm2): 0.760 Bone mineral density about the L hip (g/cm2): 0.742 T Score values are as follows: -----R Neck: -2.0 -----L Neck: -2.1 -----R Total: -1.7 -----L Total: -1.1 Bone mineral density has: Decreased -4.4% since study of: 12/25/2018 IMPRESSION: Osteopenia (T Score between -2.5 and -1). There is slightly increased risk of fracture and the patient may be considered for treatment. Re-Screen 2-5 years. NOTE: T-SCORE=SD OF THE YOUNG ADULT MEAN.
--- NOTE | 2021-05-07 13:55 | MM ---
Reason for exam: screening (asymptomatic). Last mammogram was performed 1 year and 4 months ago. History: Patient is postmenopausal and is nulliparous. Family history of breast cancer in paternal aunt at age 60 and breast cancer in maternal aunt at age 65. Benign cyst aspiration of the left breast, January 24, 2003. Benign excisional biopsy of the right breast. Took estrogen for 13 years beginning at age 35. Physical Findings: A clinical breast exam by your physician is recommended on an annual basis and results should be correlated with mammographic findings. MG 3D Screening Mammo W/Cad Bilateral CC and MLO view(s) were taken. Prior study comparison: December 25, 2019, bilateral MG 3d diag mammo w/cad VIKAS. January 02, 2019, bilateral MG work up mamm w CAD BILAT. The breast tissue is heterogeneously dense. This may lower the sensitivity of mammography. Focal asymmetry lower outer left breast zone B. ASSESSMENT: Incomplete: need additional imaging evaluation, BI-RAD 0 RECOMMENDATION: Special view mammogram of the left breast. If lesion persists on supplemental views, image directed ultrasound is recommended. [facility] will attempt to contact patient to return for supplemental views and ultrasound if indicated.
== END | disposition home or self-care (01) ==
LOC: RADMAMWWP 09:11
PROVIDERS: ATTEND Obstetrics & Gynecology
DX: Z12.31 Encounter for screening mammogram for malignant neoplasm of breast (principal); M85.89 Other specified disorders of bone density and structure, multiple sites; Z78.0 Asymptomatic menopausal state; Z80.3 Family history of malignant neoplasm of breast
CPT/HCPCS: 77063; 77067; 77080

== ENCOUNTER → 2021-05-14 | Outpatient (CLI) | payer MEDICARE ==
--- NOTE | 2021-05-14 13:51 | MM ---
Reason for exam: additional evaluation requested from abnormal screening. Last mammogram was performed less than 1 month ago. History: Patient is postmenopausal and is nulliparous. Family history of breast cancer in paternal aunt at age 60 and breast cancer in maternal aunt at age 65. Benign cyst aspiration of the left breast, January 24, 2003. Benign excisional biopsy of the right breast. Took estrogen for 13 years beginning at age 35. Physical Findings: A clinical breast exam by your physician is recommended on an annual basis and results should be correlated with mammographic findings. MG 3D Work Up W/Cad LT Spot compression CC, spot compression MLO, and LM view(s) were taken of the left breast. Prior study comparison: May 06, 2021, bilateral MG 3d screening mammo w/cad. December 25, 2019, bilateral MG 3d diag mammo w/cad VIKAS. The breast tissue is heterogeneously dense. This may lower the sensitivity of mammography. Focal asymmetry at 3-4 o'clock, persists on CC compression but not on MLO view. These results were verbally communicated with the patient and result sheet given to the patient on 05/14/21. ASSESSMENT: Incomplete: need additional imaging evaluation, BI-RAD 0 RECOMMENDATION: Ultrasound of the left breast.
--- NOTE | 2021-05-14 13:54 | USB ---
Reason for exam: additional evaluation requested from abnormal screening. History: Patient is postmenopausal and is nulliparous. Family history of breast cancer in paternal aunt at age 60 and breast cancer in maternal aunt at age 65. Benign cyst aspiration of the left breast, January 24, 2003. Benign excisional biopsy of the right breast. Took estrogen for 13 years beginning at age 35. US Breast Workup Limited LT Technologist: Audra Rios Left limited breast ultrasound including focal area of concern, retroareolar and axilla demonstrates a 0.6 x 0.5 x 0.4cm cystic lesion at 12 o'clock, a 0.4 x 0.4 x 0.3cm cystic lesion at 1 o'clock, a 0.9 x 0.6 x 0.3cm cystic lesion at 3 o'clock, internal echoes, good through transmission, cyst aspiration or biopsy recommended, a 0.6 x 0.6 x 0.4cm cystic lesion at 4 o'clock and a 1.2 x 0.9 x 0.4cm cluster at 6 o'clock. These results were verbally communicated with the patient and result sheet given to the patient on 05/14/21. ASSESSMENT: Suspicious, BI-RAD 4 RECOMMENDATION: Ultrasound core biopsy of the left breast. (3 o'clock) Called Dr. Wong's office with mammographic findings and has scheduled an appointment for the patient for 06/03/21 at 4:[address] Cueto. Biopsy scheduled for 05/27/21 at 7:00. PRELIMINARY REPORT CALLED AND FAXED TO DR. CUETO ON 05/14/21.
== END | disposition home or self-care (01) ==
LOC: RADMAMWWP 10:18
PROVIDERS: ATTEND Obstetrics & Gynecology
DX: R92.8 Other abnormal and inconclusive findings on diagnostic imaging of breast (principal); Z78.0 Asymptomatic menopausal state; Z80.3 Family history of malignant neoplasm of breast
CPT/HCPCS: 77065; 76642; G0279; 77061

== ENCOUNTER → 2021-05-27 | Day surgery (SDC) | payer MEDICARE ==
[2021-05-27 07:40] VITALS: BP 167/99; PULSE 81; RESP 18; TEMP 98.3
--- NOTE | 2021-05-27 09:13 | USB ---
US discontinued breast bx LT HISTORY: Left 3:00 lesion Patient presented for biopsy of the left 3:00 breast lesion however given elevated blood pressure of approximately 160/100 (several readings) the biopsy was discontinued until the patient can consult w ith her physician who is managing her hypertension. The lesion was reviewed and is of low suspicion. Biopsy can be rescheduled once the patient's hypertension management is reviewed.
== END | disposition home or self-care (01) ==
LOC: RADUSWWP 07:22
PROVIDERS: ATTEND Surgery
DX: R92.8 Other abnormal and inconclusive findings on diagnostic imaging of breast (principal)

== ENCOUNTER → 2021-06-03 | Day surgery (SDC) | payer MEDICARE ==
[2021-06-03 12:18] VITALS: RESP 16; TEMP 98.3
[2021-06-03 14:22] VITALS: BP 162/85; PULSE 77
--- NOTE | 2021-06-03 16:01 | USB ---
EXAMINATION TYPE: US biopsy breast VAD LT DATE OF EXAM: 06/03/2021 CLINICAL HISTORY: R92.8 ABN MAMMO. TECHNIQUE: Ultrasound guided vaccuum assisted core biopsy of left breast. COMPARISON: 05/14/2021 FINDINGS: The ultrasound guided core biopsy procedure was explained to the patient. The risks, benef its, alternatives were discussed. An informed consent was then obtained. Timeout was performed. The patient was placed in supine positioning for imaging and for the procedure. The overlying skin w as prepped with betadine and sterilely draped in usual sterile fashion. Lidocaine 1% was used as ane sthetic into the skin and deeper breast tissue up to area of concern in the breast. A small skin lainey k was made with surgical scalpel. Under ultrasound guidance, a 12-gauge vacuum assisted biopsy device was used to obtain 3 core samples . A biopsy clip was left in lesion. Coil clip was placed. Good hemostasis was obtained with direct pressure. Discharge instructions were discussed with the anastacio bosch. The patient will follow up with the referring physician for results. Postprocedure mammogram: The patient was transferred to mammography for physician ordered post proced ure mammogram for clip placement verification. The clip is in the expected region of the biopsy. The patient tolerated the procedure well without any immediate complication. The patient was dischar ged to home in stable condition. IMPRESSION: 1. Successful ultrasound guided biopsy left breast. Recommendations: 1. Recommendations are pending pathology results.
== END | disposition home or self-care (01) ==
LOC: RADUSWWP 11:50
PROVIDERS: ATTEND Surgery
DX: N60.82 Other benign mammary dysplasias of left breast (principal); N62 Hypertrophy of breast; N60.32 Fibrosclerosis of left breast
CPT/HCPCS: 88305; 77065; 19083; A4648; J2001

== ENCOUNTER → 2021-11-26 | Outpatient (CLI) | payer MEDICARE ==
--- NOTE | 2021-11-26 14:43 | MM ---
Reason for Exam: Follow-up at short interval from prior study. Last screening mammogram was performed 7 month(s) ago. Patient History: Menarche at age 12. Patient has no children. Left ovary removed at age 35. Right ovary removed at age 35. Hysterectomy at age 35. Postmenopausal. Estrogen for 13 years from age 35 until age 48. Benign Excisional Biopsy on the right side. 06/03/2021, High risk Core Biopsy on the left side. 01/24/2003, Benign Cyst Aspiration on the left side. 05/27/2021, US discontinued breast bx LT on the left side. Paternal aunt had breast cancer, age 60. Maternal aunt had breast cancer, age 65. Risk Values: Yareli 5 year model risk: 2.8%. NCI Lifetime model risk: 9.5%. Prior Study Comparison: 05/06/2021 Bilateral Screening Mammogram, [facility]. 05/14/2021 Left Diagnostic Mammogram, [facility]. 06/03/2021 Left Diagnostic Mammogram, [facility]. Tissue Density: Left: The breast tissue is heterogeneously dense. This may lower the sensitivity of mammography. Findings: Analyzed By CAD. A metallic biopsy clip redemonstrated. Scattered small round circumscribed masses throughout the left breast again seen. There is 8 mm round circumscribed mass deep subareolar region slightly upper outer aspect which is larger from prior. Overall Assessment: Incomplete: need additional imaging evaluation, BI-RAD 0 Management: Diagnostic Breast Ultrasound of the left breast. Targeted ultrasound left breast. Electronically signed and approved by: Vickey Whelan M.D.
--- NOTE | 2021-11-27 09:41 | USB ---
Reason for Exam: Additional evaluation requested from abnormal screening. Patient History: Menarche at age 12. Patient has no children. Left ovary removed at age 35. Right ovary removed at age 35. Hysterectomy at age 35. Postmenopausal. Estrogen for 13 years from age 35 until age 48. Benign Excisional Biopsy on the right side. 06/03/2021, High risk Core Biopsy on the left side. 01/24/2003, Benign Cyst Aspiration on the left side. 05/27/2021, US discontinued breast bx LT on the left side. Paternal aunt had breast cancer, age 60. Maternal aunt had breast cancer, age 65. Risk Values: Yareli 5 year model risk: 2.8%. NCI Lifetime model risk: 9.5%. Prior Study Comparison: 05/06/2021 Bilateral Screening Mammogram, [facility]. 05/14/2021 Left Diagnostic Mammogram, [facility]. 05/14/2021 Left Diagnostic Ultrasound, [facility]. 06/03/2021 Left Diagnostic Mammogram, [facility]. Findings: The upper outer quadrant of the left breast, the axilla of the left breast and the retroareolar of the left breast were scanned. No there is irregular thin-walled cysts measuring near 6 mm at 3:00 position 4 cm cm distance from nipple felt to reflect debris filled cyst. More simple appearing thin-walled 6 mm cyst at 6 cm distance from nipple 3:00 position also seen. Finally larger near 9 mm thin-walled cyst at 1:00 position 3 cm distance from nipple likely corresponds to the new mammogram abnormality. Overall Assessment: Benign, BI-RAD 2 Management: Screening Mammogram of both breasts in 6 months. Back on schedule. Patient told the findings and recommendations at time of dictation. Electronically signed and approved by: Vickey Whelan M.D.
== END | disposition home or self-care (01) ==
LOC: RADMAMWWP 14:19
PROVIDERS: ATTEND Surgery
DX: R92.1 Mammographic calcification found on diagnostic imaging of breast (principal); Z78.0 Asymptomatic menopausal state; Z80.3 Family history of malignant neoplasm of breast
CPT/HCPCS: 77065; 76642; G0279; 77061

== ENCOUNTER → 2022-05-31 | Outpatient (CLI) | payer MEDICARE ==
--- NOTE | 2022-06-01 08:50 | MM ---
Reason for Exam: Screening (asymptomatic). Last mammogram was performed 1 year(s) and 1 month(s) ago. Patient History: Menarche at age 12. Patient has no children. Left ovary removed at age 35. Right ovary removed at age 35. Hysterectomy at age 35. Postmenopausal. Estrogen for 13 years from age 35 until age 48. Benign Excisional Biopsy on the right side. 06/03/2021, High risk Core Biopsy on the left side. 01/24/2003, Benign Cyst Aspiration on the left side. 05/27/2021, US discontinued breast bx LT on the left side. Paternal aunt had breast cancer, age 60. Maternal aunt had breast cancer, age 65. Risk Values: Yareli 5 year model risk: 2.8%. NCI Lifetime model risk: 9.5%. Prior Study Comparison: 05/14/2021 Left Diagnostic Mammogram, [facility]. 06/03/2021 Left Diagnostic Mammogram, [facility]. 11/26/2021 Left MG 3D diag mammo w/cad LT, [facility]. Tissue Density: The breast tissue is heterogeneously dense. This may lower the sensitivity of mammography. Findings: Analyzed By CAD. Benign calcifications within the right breast. No new suspicious mass within the right breast. A metallic biopsy clip redemonstrated in the left breast. Scattered small round cysts surgical masses throughout the left breast again seen with increased size of a 1.1 cm circumscribed mass within the deep subareolar region slightly upper outer aspect of the left breast, previously measured 0.8 cm. Overall Assessment: Incomplete: need additional imaging evaluation, BI-RAD 0 Management: Diagnostic Breast Ultrasound of the left breast. A clinical breast exam by your physician is recommended on an annual basis and results should be correlated with mammographic findings. [facility] will attempt to contact patient to return for supplemental views and ultrasound if indicated. Electronically signed and approved by: Conrad Mcginnis D.O.
== END | disposition home or self-care (01) ==
LOC: RADMAMWWP 09:48
PROVIDERS: ATTEND Surgery
DX: Z12.31 Encounter for screening mammogram for malignant neoplasm of breast (principal); Z78.0 Asymptomatic menopausal state; Z80.3 Family history of malignant neoplasm of breast
CPT/HCPCS: 77063; 77067

== ENCOUNTER → 2022-06-08 | Outpatient (CLI) | payer MEDICARE ==
--- NOTE | 2022-06-08 14:44 | USB ---
Reason for Exam: Additional evaluation requested from abnormal screening. Patient History: Menarche at age 12. Patient has no children. Left ovary removed at age 35. Right ovary removed at age 35. Hysterectomy at age 35. Postmenopausal. Estrogen for 13 years from age 35 until age 48. Benign Excisional Biopsy on the right side. 06/03/2021, High risk Core Biopsy on the left side. 01/24/2003, Benign Cyst Aspiration on the left side. 05/27/2021, US discontinued breast bx LT on the left side. Paternal aunt had breast cancer, age 60. Maternal aunt had breast cancer, age 65. Risk Values: Yareli 5 year model risk: 2.8%. NCI Lifetime model risk: 9.5%. Technique: Method: Targeted. Prior Study Comparison: 06/03/2021 Left Diagnostic Mammogram, [facility]. 11/26/2021 Left MG 3D diag mammo w/cad LT, [facility]. 05/31/2022 Bilateral MG 3D screening mammo w/cad, [facility]. Findings: The axilla of the left breast and the retroareolar of the left breast were scanned. Targeted ultrasound shows a by 9 x 7 by 8 mm oval anechoic lesion with increased through transmission at 12:00 level retroareolar region thought to correspond to area of concern on mammogram. Overall Assessment: Benign, BI-RAD 2 Management: Screening Mammogram of both breasts in 1 year. Return to routine follow-up. Results were given to the patient verbally at the time of exam. Electronically signed and approved by: Vickey Whelan M.D.
== END | disposition home or self-care (01) ==
LOC: RADUSWWP 14:14
PROVIDERS: ATTEND Surgery
DX: R92.8 Other abnormal and inconclusive findings on diagnostic imaging of breast (principal); N63.20 Unspecified lump in the left breast, unspecified quadrant; Z78.0 Asymptomatic menopausal state; Z90.721 Acquired absence of ovaries, unilateral; Z80.3 Family history of malignant neoplasm of breast

== ENCOUNTER 2023-01-26 11:42 | Day surgery (SDC) | payer MEDICARE ==
[2023-01-24 13:34] VITALS: BMI 29.2
[~2023-01-26 11:42] MED LIST changes: -LIDOCAINE 1% 20 ML VIAL (10MG/ML) FOR IV START INTRADERMA PRN
[2023-01-26 12:54] VITALS: RESP 16; TEMP 97.6
[2023-01-26] MEDS ORDERED: LIDOCAINE 1% INJ 10MG/ML (20 ML MDV) ONE (13:01)
[2023-01-26] MEDS ORDERED: PROPOFOL 10 MG/ML 20 ML VIAL IV ONE (13:01)
[2023-01-26] MEDS ORDERED: GLYCOPYRROLATE 0.2 MG/ML 2 ML VIAL ONE (13:01)
--- NOTE | 2023-01-26 13:23 | P.PCN ---
Date of Procedure: 01/26/23 Procedure(s) Performed: BRIEF HISTORY: Patient is a 67-year-old pleasant white female scheduled for an elective colonoscopy as a part of evaluation of prior history of colon polyps. Last colonoscopy was 6 years ago. PROCEDURE PERFORMED: Colonoscopy With snare polypectomy PREOPERATIVE DIAGNOSIS: History of colon polyps. IV sedation per Anesthesia. PROCEDURE: After informed consent was obtained, the patient, was brought into the endoscopy unit. IV sedation was administered by Anesthesia under continuous monitoring. Digital rectal examination was normal. Initially the Olympus CF- flexible video colonoscope was then inserted in the rectum, gradually advanced into the sigmoid: Further advancement was not possible because of acute angle duration this area. The scope was removed and a pediatric colonoscope was inserted into the rectum and gradually advanced to the cecum with moderate to severe difficulty. Careful examination was performed as the scope was gradually being withdrawn. Ileocecal valve and the appendiceal orifice were visualized and appeared normal. Prep was excellent. Mucosa of the cecum, we normal. In the ascending colon there was a 1 cm polyp by snare polypectomy. Rest of the ascending colon, transverse colon, descending colon, sigmoid colon, and rectum appeared normal. Scattered sigmoid diverticulosis. Retroflexion was performed in the rectum and no lesions were seen. The patient tolerated the procedure well. IMPRESSION: 1 cm ascending colon polyp status post snare polypectomy Scattered sigmoid diverticulosis. RECOMMENDATIONS: Findings of this examination were discussed with the patient as well as a family. She was advised to follow with the biopsy results and if the biopsy reveals adenoma he can have a repeat colonoscopy in 3 years
[2023-01-26 14:16] VITALS: BP 151/81; PULSE 79
== END 2023-01-26 14:07 | disposition home or self-care (01) ==
LOC: ORWHC2ENDO 11:42
PROVIDERS: ATTEND Internal Medicine Gastroenterology
DX: Z12.11 Encounter for screening for malignant neoplasm of colon (principal); D12.6 Benign neoplasm of colon, unspecified; K57.30 Diverticulosis of large intestine without perforation or abscess without bleeding; I10 Essential (primary) hypertension; E07.9 Disorder of thyroid, unspecified; Z86.010 Personal history of colon polyps; Z79.890 Hormone replacement therapy; Z88.0 Allergy status to penicillin; Z98.890 Other specified postprocedural states; Z79.899 Other long term (current) drug therapy
CPT/HCPCS: 45385; J2001; J2704; 88305

== ENCOUNTER → 2023-06-02 | Outpatient (CLI) | payer MEDICARE ==
--- NOTE | 2023-06-03 09:59 | MM ---
Reason for Exam: Screening (asymptomatic). Last screening mammogram was performed 12 month(s) ago. Patient History: Menarche at age 12. Patient has no children. Left ovary removed at age 35. Right ovary removed at age 35. Hysterectomy at age 35. Postmenopausal. Estrogen for 13 years from age 35 until age 48. Benign Excisional Biopsy on the right side. 06/03/2021, High risk Core Biopsy on the left side. 01/24/2003, Benign Cyst Aspiration on the left side. 05/27/2021, US discontinued breast bx LT on the left side. Paternal aunt had breast cancer, age 60. Maternal aunt had breast cancer, age 65. Risk Values: Yareli 5 year model risk: 2.8%. NCI Lifetime model risk: 9.1%. Prior Study Comparison: 06/03/2021 Left Diagnostic Mammogram, [facility]. 11/26/2021 Left MG 3D diag mammo w/cad LT, [facility]. 05/31/2022 Bilateral MG 3D screening mammo w/cad, [facility]. Tissue Density: The breasts are heterogeneously dense, which may obscure small masses. Findings: Analyzed By CAD. Right breast biopsy clip. Right breast: There is no suspicious group of microcalcifications or new suspicious mass. Left breast: There is no suspicious group of microcalcifications or new suspicious mass. There is no suspicious group of microcalcifications or new suspicious mass. Overall Assessment: Benign, BI-RAD 2 Management: Screening Mammogram of both breasts in [address] [facility] will attempt to contact patient to return for supplemental views and ultrasound if indicated. Patient should continue monthly self-breast exams. A clinical breast exam by your physician is recommended on an annual basis. This exam should not preclude additional follow-up of suspicious palpable abnormalities. Note on Yareli scores and lifetime risk: 1. A Yareli score greater than 3% is considered moderate risk. If this is the case, consider specialist referral to assess eligibility for a risk reducing agent. 2. If overall lifetime risk for the development of breast cancer is 20% or higher, the patient may qualify for future screening with alternating mammogram and breast MRI. Electronically signed and approved by: Regan Omalley DO
== END | disposition home or self-care (01) ==
LOC: RADMAMWWP 10:18
PROVIDERS: ATTEND Internal Medicine
DX: Z12.31 Encounter for screening mammogram for malignant neoplasm of breast (principal); Z78.0 Asymptomatic menopausal state; Z80.3 Family history of malignant neoplasm of breast
CPT/HCPCS: 77063; 77067

== ENCOUNTER → 2024-09-05 | Outpatient (CLI) | payer MEDICARE ==
--- NOTE | 2024-09-05 16:16 | MM ---
Reason for Exam: Screening (asymptomatic). Last mammogram was performed 1 year(s) and 3 month(s) ago. Patient History: Menarche at age 12. Patient has no children. Left ovary removed at age 35. Right ovary removed at age 35. Hysterectomy at age 35. Postmenopausal. Estrogen for 13 years from age 35 until age 48. Benign Excisional Biopsy on the right side. 06/03/2021, High risk Core Biopsy on the left side. 01/24/2003, Benign Cyst Aspiration on the left side. 05/27/2021, US discontinued breast bx LT on the left side. Paternal aunt had breast cancer, age 60. Maternal aunt had breast cancer, age 65. Risk Values: Yareli 5 year model risk: 2.9%. NCI Lifetime model risk: 8.3%. Prior Study Comparison: 11/26/2021 Left MG 3D diag mammo w/cad LT, [facility]. 05/31/2022 Bilateral MG 3D screening mammo w/cad, [facility]. 06/02/2023 Bilateral MG 3D screening mammo w/cad, [facility]. Tissue Density: The breasts are heterogeneously dense, which may obscure small masses. Findings: Analyzed By CAD. Right breast: There is no suspicious group of microcalcifications or new suspicious mass. Benign-appearing calcifications right breast. Left breast: There is no suspicious group of microcalcifications or new suspicious mass. Benign-appearing calcifications left breast. Overall Assessment: Benign, BI-RAD 2 Management: Screening Mammogram of both breasts in [address] [facility] will attempt to contact patient to return for supplemental views and ultrasound if indicated. Patient should continue monthly self-breast exams. A clinical breast exam by your physician is recommended on an annual basis. This exam should not preclude additional follow-up of suspicious palpable abnormalities. Note on Yareli scores and lifetime risk: 1. A Yareli score greater than 3% is considered moderate risk. If this is the case, consider specialist referral to assess eligibility for a risk reducing agent. 2. If overall lifetime risk for the development of breast cancer is 20% or higher, the patient may qualify for future screening with alternating mammogram and breast MRI. [facility], , 09/05/2024 4:13 PM. Electronically signed and approved by: Regan Omalley DO
--- NOTE | 2024-09-06 15:27 | BD ---
EXAMINATION TYPE: Axial Bone Density DATE OF EXAM: 09/05/2024 CLINICAL HISTORY: 69 years old Female. ICD-10 CODE: M85.88 Disorder of bon , Additional History: Height: 61 Weight: 174 FRAX RISK QUESTIONS: Family History (Parent hip fracture): no History of Fracture in Adulthood: yes Secondary Osteoporosis: yes 3. Menopause before 45: yes RISK FACTORS HISTORY OF: Surgery to Spine/Hip(right/left)/Wrist (right/left): no MEDICATIONS: Thyroid Medications: yes Which medication: Synthroid How Lon+ years Osteoporosis Medications: no EXAM MEASUREMENTS: Bone mineral densitometry was performed using the [employer]. Bone mineral density as measured about the Lumbar spine is: ----- L1-L4(G/cm2): 1.132 T Score Values are as follows: ----- L1: 0.0 ----- L2: -1.5 ----- L3: -0.3 ----- L4: -0.2 ----- L1-L4: -0.4 Z Score Values are as follows: ----- L1: 1.3 ----- L2: -0.3 ----- L3: 0.9 ----- L4: 1.0 ----- L1-L4: 0.8 Bone mineral density has: Increased 4.8% since study of: 05/06/2021 Bone mineral density about the R hip (g/cm2): 0.746 Bone mineral density about the L hip (g/cm2): 0.840 T Score values are as follows: -----R Neck: -2.4 -----L Neck: -2.1 -----R Total: -2.1 -----L Total: -1.3 Z Score values are as follows: -----R Neck: -1.0 -----L Neck: -0.7 -----R Total: -0.9 -----L Total: -0.2 Bone mineral density has: Decreased -4.3% since study of: 05/06/2021 FRAX%s: The graph provided illustrates a 13.2% chance for a major osteoporotic fx and a 3.1% chance f or the hips probability for fx in 10 years time. IMPRESSION: Osteopenia (T Score between -2.5 and -1). There is slightly increased risk of fracture and the patient may be considered for treatment. Re-Screen 2-5 years. NOTE: T-SCORE=SD OF THE YOUNG ADULT MEAN. [facility], , 09/06/2024 3:25 PM
== END | disposition home or self-care (01) ==
LOC: RADMAMWWP 15:33
PROVIDERS: ATTEND Internal Medicine
DX: Z12.31 Encounter for screening mammogram for malignant neoplasm of breast (principal); M85.88 Other specified disorders of bone density and structure, other site; R92.333 Mammographic heterogeneous density, bilateral breasts; M85.89 Other specified disorders of bone density and structure, multiple sites; R92.1 Mammographic calcification found on diagnostic imaging of breast; Z78.0 Asymptomatic menopausal state; Z80.3 Family history of malignant neoplasm of breast
CPT/HCPCS: 77063; 77067; 77080